=== PATIENT | male | born 1970 | race Caucasian/White ===

== ENCOUNTER 2021-04-19 11:36 | Emergency (ER) | payer OTHER, SELFPAY ==
--- NOTE | ~2021-04-19 | XR_ITS ---
EXAMINATION: XR chest 2V EXAM DATE: 04/19/2021 12:09 INDICATION: Syncope. TECHNIQUE: Frontal and lateral projections of the chest obtained and reviewed. There is no prior suresh dy for comparison. FINDINGS: The lungs are clear. There are no pleural effusions. The cardiomediastinal silhouette is within normal limits. There is no pneumothorax suspected. The bones and soft tissues are unremarkab le. IMPRESSION: No acute cardiopulmonary findings. Reviewed, dictated and finalized at location A.
--- NOTE | ~2021-04-19 | CT_ITS ---
EXAMINATION: CT abdomen pelvis w con DATE: 04/19/2021 16:14 INDICATION: Abdomen pain, nausea and vomiting TECHNIQUE: Computed tomography (CT) of the abdomen and pelvis was performed without intravenous contr ast. The dose-length product was 447.37 mGy-cm. Automated exposure control and iterative reconstructi on technique were employed. COMPARISON: None. FINDINGS: There is dependent atelectasis. Heart size normal. No significant pleural or pericardial ef fusion. No significant vascular abnormality. No lymphadenopathy. There is fluid throughout the bowel including the stomach, small bowel and colon, suspicious for enteritis. No obstruction. The liver, sp miguelito, pancreas, adrenal glands and kidneys are unremarkable. No free air or free fluid. No acute osse ous abnormality. IMPRESSION: 1. Fluid throughout the nondilated bowel including the stomach, small bowel and colon, suspicious for enteritis. Reviewed, dictated and finalized at location A.
--- NOTE | ~2021-04-19 | CT_ITS ---
EXAMINATION: CT brain wo con EXAM DATE: 04/19/2021 12:18 INDICATION: head injury, syncope TECHNIQUE: Spiral CT of the head was performed without contrast. Axial, coronal and sagittal images were reviewed. The dose-length product (DLP) for this examination was 605.33 mGy-cm. The exposure w as tailored according to patient size, and iterative reconstruction (ASIR) was used as additional dos e reduction technique. There is no prior study for comparison. FINDINGS: There is no acute intraparenchymal hemorrhage. No evidence of intraparenchymal brain mass lesion. No evidence of acute infarction. There is no mass effect or midline shift. The ventricles are normal in size. There are no extra-axial collections. There are no acute calvarial fractures. T he orbits are unremarkable. Soft tissue is unremarkable. The visualized sinuses and mastoid air lori ls are well aerated. IMPRESSION: 1. No acute intracranial findings. Reviewed, dictated and finalized at location A.
[2021-04-19 11:41] VITALS: BP 112/81; PULSE 125; RESP 18; TEMP 36.7; O2SAT 100
--- NOTE | 2021-04-19 11:55 | ECG_ITS ---
Measurements Intervals [place] Rate: 84 P: 22 NE: 112 QRS: 13 QRSD: 85 T: 70 QT: 318 QTc: 377 Interpretive Statements SINUS RHYTHM WITH SHORT NE INTERVAL DELAYED PRECORDIAL R/S TRANSITION LOW QRS VOLTAGE IN LIMB LEADS BASELINE ARTIFACT- II, III, AVR, AVF, V3-V6 BORDERLINE ECG Electronically Signed On 04-19-2021 15:54:53 CDT by Arjun Delvalle D.O.
--- NOTE | 2021-04-19 12:02 | ED.NAVMDI ---
HPI - Nausea/Vomiting/Diarrhea General Chief complaint: Nausea/Vomiting/Diarrhea <Yuliya Recinos PA-C - Last Filed: 04/19/21 17:54> Stated complaint: food poisoning <Yuliya Recinos PA-C - Last Filed: 04/19/21 17:54> Time Seen by Provider: 04/19/21 11:57 <Yuliya Recinos PA-C - Last Filed: 04/19/21 17:54> Source: patient <Yuliya Recinos PA-C - Last Filed: 04/19/21 17:54> Mode of arrival: wheelchair <Yuliya Recinos PA-C - Last Filed: 04/19/21 17:54> Limitations: no limitations <Yuliya Recinos PA-C - Last Filed: 04/19/21 17:54> History of Present Illness HPI Narrative: This is a 50 year old male that presents to the ER for nausea, vomiting, and diarrhea since this morning. Reports crampy abdominal pain. Reports he has had two syncopal episodes this morning. Reports he did hit his head. Denies any other injuries. Does report history of syncopal episodes in the past. Denies fever, or dysuria. <Yuliya Recinos PA-C - Last Filed: 04/19/21 17:54> Related Data Allergies/Adverse reactions: Allergies Allergy/AdvReac Type Severity Reaction Status Date / Time No Known Allergies Allergy Verified 04/19/21 15:01 <Yuliya Recinos PA-C - Last Filed: 04/19/21 17:54> Review of Systems Review of Systems: CONSTITUTIONAL: Denies fever GASTROINTESTINAL: Reports abdominal pain, nausea, vomiting, and diarrhea. GENITOURINARY: Denies dysuria NEUROLOGIC: Denies headache, numbness, or weakness. <Yuliya Rceinos PA-C - Last Filed: 04/19/21 17:54> All systems reviewed & are unremarkable except as noted in HPI and below <Yuliya Recinos PA-C - Last Filed: 04/19/21 17:54> [facility] Past Medical History Medical History: Medical History (Updated 04/19/21 @ 17:56 by Yuliya Recinos PA-C) No active medical problems <Yuliya Recinos PA-C - Last Filed: 04/19/21 17:54> Social History Social History: Social History Smoking status: Never smoker Alcohol intake: current <Yuliya Recinos PA-C - Last Filed: 04/19/21 17:54> Exam Narrative: GENERAL: Well-appearing, well-nourished, and in no acute distress. HEAD: Normocephalic, atraumatic. EYES: PERRLA and EOMI. ENT: Nares clear, no rhinorrhea or epistaxis. Mucous membranes moist. Oropharynx without tonsillar hypertrophy exudate or other lesions. Bilateral TMs pearly spain non-bulging NECK: Supple. No adenopathy or masses. No midline cervical spine tenderness CHEST: Clear to auscultation. No respiratory distress. No wheezes rales or rhonchi HEART: Regular rate and rhythm. No murmur heard. Normal peripheral pulses. ABDOMEN: Soft, nontender, nondistended, normal active bowel sounds. EXTREMITIES: Normal range of motion. No edema. SKIN: Warm, dry, no rash. NEURO: No focal deficits. Alert and oriented x3. Cranial nerves II through XII grossly intact PSYCH: Normal mood and affect <Yuliya Recinos PA-C - Last Filed: 04/19/21 17:54> Course COMPUTING TUTOR/PA Physician Supervision I did not see this patient nor was the care plan discussed with me. I was available for evaluation and consultation, I agree with the documentation as above <Cj Yoon MD - Last Filed: 04/19/21 18:36> Vital Signs Vital signs: Vital Signs Temperature 36.7 C 04/19/21 11:41 Pulse Rate 125 H 04/19/21 11:41 Respiratory Rate 18 04/19/21 11:41 Blood Pressure 112/81 04/19/21 11:41 Pulse Oximetry 100 04/19/21 11:41 Temperature 36.7 C 04/19/21 11:41 Pulse Rate 110 H 04/19/21 18:04 Respiratory Rate 16 04/19/21 18:04 Blood Pressure 102/60 04/19/21 18:04 Pulse Oximetry 99 04/19/21 18:04 <Yuliya Recinos PA-C - Last Filed: 04/19/21 17:54> Vital Signs Temperature 36.7 C 04/19/21 11:41 Pulse Rate 125 H 04/19/21 11:41 Respiratory Rate 18 04/19/21 11:41 Blood Pressure 112/81 04/19/21 11:41 Pulse Oximetry 100 04/19/21 11:41 Temperature 36.7 C 04/19/21 11:41 Pulse Rate 110 H 04/19/21 18:04
[2021-04-19 12:08] LABS: Basophils Absolute Auto 0.1 K/mm3 (0.0-0.1); Basophils Percent Auto 0.4 % (0.2-1.2); Eosinophils Percent Auto 0.1 % (0-4.4); Hematocrit 53.2 % (42.0-52.0); Hemoglobin 18.2 g/dL (14.0-18.0); Immature Granulocyte Absolute 0.05 K/mm3 (0.00-0.031); Immature Granulocyte Percent A 0.4 % (0-0.5); Lymphocytes Absolute Auto 0.13 K/mm3 (0.9-3.2); Mean Corpuscular HGB Conc 34.2 g/dl (32-36); Mean Corpuscular Hemoglobin 31.3 pg (26-34); Mean Corpuscular Volume 91.4 fl (80-100); Mean Platelet Volume 10.2 fl (7.4-10.4); Monocytes Absolute Auto 0.7 K/mm3 (0.1-0.6); Monocytes Percent Auto 5.2 % (2.6-8.5); Neutrophils Absolute Auto 12.4 K/mm3 (1.3-6.7); Neutrophils Percent Auto 92.9 % (45.5-73.1); Platelet Count Result 271 k/mm3 (150-375); Red Blood Count 5.82 M/mm3 (4.6-6.20); Red Cell Distribution Width 12.6 % (11.5-14.5); White Blood Count 13.3 K/mm3 (4.5-10.0)
[2021-04-19 12:29] LABS: Alanine Aminotransferase 39 U/L (4-50); Albumin Level 5.1 g/dL (3.5-5.1); Alkaline Phosphatase 85 U/L (38-126); Anion Gap 10 mmol/L (8-16); Aspartate Amino Transferase 32 U/L (17-59); Bilirubin,Total 0.8 mg/dL (0.2-1.3); Blood Urea Nitrogen 20 mg/dL (9-20); Calcium 10.1 mg/dL (8.4-10.2); Carbon Dioxide 25 mmol/L (22-30); Chloride 105 mmol/L (98-107); Estimated CRCL calculation 58 ml/min; Estimated Glomerular Filt Rate 54; Glucose 144 mg/dL (65-110); Lipase 51 U/L (23-300); Potassium 5.4 mmol/L (3.4-5.0); Sodium 140 mmol/L (137-145)
[2021-04-19] MEDS: LACTATED RINGERS 1,000 ML 999 ML IV CONT ×3 (12:33→16:36)
[2021-04-19] MEDS: ONDANSETRON INJ 4 MG/2 ML VIAL IV PUSH (12:34)
--- NOTE | 2021-04-19 12:38 | PC.NURSE ---
Pt states he is unable to give urine sample at this time.
[2021-04-19 12:50] LABS: Prothrombin Time 13.1 Seconds (11.1-14.7)
[2021-04-19 12:54] LABS: Troponin I < 0.012 ng/mL (0.000-0.034)
[2021-04-19 12:55] LABS: Partial Thromboplastin Time 24.7 SECONDS (22.3-36.8)
[2021-04-19 14:00] VITALS: BP 104/54; PULSE 116; RESP 18; O2SAT 98
[2021-04-19 15:11] VITALS: BP 109/51; PULSE 111
[2021-04-19 15:13] VITALS: BP 110/64; PULSE 119
[2021-04-19 15:15] VITALS: BP 116/70; PULSE 133
[2021-04-19 15:15] LABS: Add Urine Microscopic? YES; Appearance Urine Clear (Clear); Bilirubin Urine Negative (Negative); Blood Urine Negative (Negative); Color Urine Yellow (Yellow); Glucose Urine UA Negative (Negative); Ketones Urine Trace mg/dL (Negative); Leukocyte Esterase Ur Negative LEU/UL (Negative); Mucus Urine Rare /lpf; Nitrate Urine Negative (Negative); Protein Urine Negative (Negative); RBC Urine 0-2 /hpf (0-2); Specific Grav Ur 1.024 (1.001-1.035); Urobilinogen Urine Negative mg/dL (<2.0); WBC Urine 0-3 /hpf
[2021-04-19 17:09] LABS: Anion Gap 11 mmol/L (8-16); Blood Urea Nitrogen 20 mg/dL (9-20); Calcium 8.8 mg/dL (8.4-10.2); Carbon Dioxide 21 mmol/L (22-30); Chloride 103 mmol/L (98-107); Estimated CRCL calculation 67 ml/min; Estimated Glomerular Filt Rate > 60; Glucose 115 mg/dL (65-110); Potassium 4.5 mmol/L (3.4-5.0); Sodium 135 mmol/L (137-145)
[2021-04-19 18:04] VITALS: BP 102/60; PULSE 110; RESP 16; O2SAT 99
[2021-04-21 16:20] LABS: SARS-CoV-2 RNA PCR Negative
== END 2021-04-19 18:05 | disposition home or self-care (01) ==
PROVIDERS: Physician Assistant; Emergency Provider Emergency Medicine; PCP Internal Medicine
DX: K52.9 Noninfective gastroenteritis and colitis, unspecified (principal); R55 Syncope and collapse; Z20.822 Contact with and (suspected) exposure to COVID-19; R94.31 Abnormal electrocardiogram [ECG] [EKG]
CPT/HCPCS: 36415; 70450; 71046; 74177; 80048; 80053; 81001; 83690; 84484; 85025; 85610; 85730; 93005; 96361; 96374; 99284; C9803; J2405; J7120; Q9967; U0003; U0005

== ENCOUNTER 2023-01-01 02:33 | Day surgery (SDC) | payer OTHER, SELFPAY ==
[2022-12-21 12:23] VITALS: BMI 25.9
--- NOTE | 2022-12-31 11:33 | PM.HPGS ---
History of Present Illness History of Present Illness Consent: Risks, benefits, and alternatives have been discussed and questions answered. Patient agrees to proceed with procedure. Chief complaint: neoplasm screening Narrative: James Carrion is a 52 year old male Referred for colon cancer screening. This is his 1st colonoscopy. Review of Systems Review of Systems: All systems reviewed & are unremarkable except as noted in HPI and below PMFSH Past Medical History Medical History Hyperlipidemia No active medical problems Person under investigation for COVID-19 Social History Social History Smoking status: Never smoker Alcohol intake: current Alcohol use details: 1 drink monthly Substance use: never Substance use type: does not use Lack of Transportation: No Lack of Food: Never True Current Housing: I Have Housing Concerned About Future Housing: No Difficulty Paying Gas/Electric Bills: No Currently Unemployed: No Education: Bachelor's Degree Difficulty w/ Childcare or Family Care: No Living arrangements: with family Spiritual care concerns: No Meds Home Medications and Allergies Home Medications Medication Instructions Recorded Confirmed Type Adult One Daily Multivitamin 1 tablet PO DAILY 12/21/22 12/21/22 History Allergies Allergy/AdvReac Type Severity Reaction Status Date / Time No Known Allergies Allergy Verified 01/01/23 08:26 Exam Const: General: alert Orientation/consciousness: patient oriented x3 Resp: Auscultation: clear to auscultation bilaterally Cardio: Rhythm: regular rhythm GI: GI Palp: Yes Soft to palpation and No Tenderness to palpation present (GI) Neuro: General: patient oriented x3 Assessment and Plan Assessment and plan (1) Screening for colon cancer: Code(s): Z12.11 - Encounter for screening for malignant neoplasm of colon Status: Acute Assessment and Plan: Colonoscopy with possible biopsy or polypectomy or cautery or injection of substances.
[2023-01-01 08:27] VITALS: BP 120/76; PULSE 58; RESP 16; TEMP 36.1; O2SAT 100
[2023-01-01] MEDS: LACTATED RINGERS 1,000 ML 150 ML IV CONT (08:38)
--- NOTE | 2023-01-01 08:59 | WPDANESEPPF ---
Anes - Initial Pre Proc Eval Procedure: Operation Date: 01/01/23 09:30 Proposed Procedures p Screening Colonoscopy - Stalin Flores MD Date/Time: 01/01/23 08:59 Surgeon: Stalin Flores MD Pre Op Diagnosis: neoplasm screening Patient Data Age: 52 Gender: M Height: 1.75 m Weight: 77.7 kg Last Vital Signs Temp 97 F L 01/01/23 08:27 Pulse 58 L 01/01/23 08:27 Resp 16 01/01/23 08:27 BP 120/76 01/01/23 08:27 Pulse Ox 100 01/01/23 08:27 O2 Del Method Room Air 01/01/23 08:27 Allergies Allergy/AdvReac Type Severity Reaction Status Date / Time No Known Allergies Allergy Verified 01/01/23 08:26 Home Medications Medication Instructions Recorded Confirmed Type Adult One Daily Multivitamin 1 tablet PO DAILY 12/21/22 12/21/22 History Patient hx anesthesia problems: none Family hx anesthesia problems: none Results Review: All pre-operative results and documents have been reviewed as part of the pre-operative evaluation. [facility] Past Medical History Medical History Hyperlipidemia No active medical problems Person under investigation for COVID-19 Social History Social History Smoking status: Never smoker Alcohol intake: current Alcohol use details: 1 drink monthly Substance use: never Substance use type: does not use Lack of Transportation: No Lack of Food: Never True Current Housing: I Have Housing Concerned About Future Housing: No Difficulty Paying Gas/Electric Bills: No Currently Unemployed: No Education: Bachelor's Degree Difficulty w/ Childcare or Family Care: No Living arrangements: with family Spiritual care concerns: No Anes - Eval Final PreProcedure Day of Procedure 01/01/23 08:59 Patient weight: normal Heart: regular rate and rhythm Lungs: clear to auscultation Airway: Mallampati scale class II Neurological: alert and oriented Last oral intake: >/= 8 hours ASA classification: II Emergent: no Anesthetic plan: proceed Anesthesia type and monitoring: general GIVS and standard monitoring Results Review: All pre-operative results and documents have been reviewed as part of the pre-operative evaluation. Informed Consent: The patient's anesthetic plan and its attendant risks and benefits were discussed with the patient/family/POA. Questions were solicited and answers provided to the satisfaction of the patient/family/POA.
[2023-01-01 09:42] VITALS: BP 87/54; PULSE 70; RESP 16; O2SAT 99
[2023-01-01 09:52] VITALS: BP 93/58; PULSE 71; RESP 18; O2SAT 100
[2023-01-01 10:02] VITALS: BP 101/66; PULSE 64; RESP 18; O2SAT 100
== END 2023-01-01 10:17 | disposition home or self-care (01) ==
PROVIDERS: PCP Internal Medicine; Visit Provider Internal Medicine Gastroenterology
PROC: 0DJD8ZZ Inspection of Lower Intestinal Tract, Via Natural or Artificial Opening Endoscopic (ICD-10-PCS; CPT 45378; principal; 2023-01-01 09:30)
DX: Z12.11 Encounter for screening for malignant neoplasm of colon (principal); D12.5 Benign neoplasm of sigmoid colon
CPT/HCPCS: 45385; 45380; 88305; J2704; J7120